=== PATIENT | male | born 1975 | race Caucasian/White ===

== ENCOUNTER 2017-03-02 16:33 | Emergency (ER) | payer OTHER ==
--- NOTE | 2017-03-02 16:58 | EDM.PDOC ---
ED HPI GENERAL MEDICAL PROBLEM - General Chief Complaint: Laceration Stated Complaint: FINGER LACERATION Time Seen by Provider: 03/02/17 16:50 Source of Information: Reports: Patient History Limitations: Reports: No Limitations - History of Present Illness INITIAL COMMENTS - FREE TEXT/NARRATIVE: Patient is a 41 year old male who presents to the ER with complaints of a cut to his left middle finger. He reports he was cutting onions and slipped and cut his finger with the knife. He reports it was bleeding so he came to ER. Denies numbness and tingling to affected extremity. Denies any other complaints. Onset: Today Onset Date: 03/02/17 Onset Time: 16:20 Location: Reports: Upper Extremity, Left Severity: Mild Left 3-Middle finger Pain Score (Numeric/FACES): 3 - Related Data Allergies Allergy/AdvReac Type Severity Reaction Status Date / Time aspirin Allergy Bleeding Verified 03/02/17 16:39 Home Meds: Home Meds . [No Known Home Meds] 03/02/17 [History] Past Medical History - Past Health History Medical/Surgical History: Denies Medical/Surgical History - Infectious Disease History Infectious Disease History: Reports: Hepatitis B - Past Surgical History HEENT Surgical History: Reports: Tonsillectomy Social & Family History - Family History Family Medical History: Noncontributory - Tobacco Use Smoking Status *Q: Current Every Day Smoker Years of Tobacco use: 10 Packs/Tins Daily: 0.2 - Caffeine Use Caffeine Use: Reports: None - Recreational Drug Use Recreational Drug Use: No ED ROS GENERAL - Review of Systems Review Of Systems: ROS reveals no pertinent complaints other than HPI. ED EXAM, SKIN/RASH Exam: See Below Exam Limited By: No Limitations General Appearance: Alert, WD/WN, No Apparent Distress Cardiovascular: Normal Peripheral Pulses Extremities: Normal Inspection, Normal Range of Motion, Non-Tender, No Pedal Edema, Normal Capillary Refill, Other (small superficial laceration to left third finger, no bleeding, CDI) Neurological: Alert, Oriented, CN II-XII Intact, Normal Cognition, Normal Gait, Normal Reflexes, No Motor/Sensory Deficits Skin: Warm, Dry Location, Skin: Upper Extremity, Left (small superficial laceration to 3rd digit ) Course - Vital Signs Last Recorded V/S: Last Vital Signs Temp 97.0 F 03/02/17 16:35 Pulse 122 H 03/02/17 16:35 Resp 20 03/02/17 16:35 BP 156/102 H 03/02/17 16:35 Pulse Ox 97 03/02/17 16:35 Departure - Departure Time of Disposition: 16:56 Disposition: Home, Self-Care 01 Condition: Good Clinical Impression: Laceration of finger Qualifiers: Encounter type: initial encounter Finger: middle finger Damage to nail status: without damage Foreign body presence: without foreign body Laterality: left Qualified Code(s): S61.213A - Laceration without foreign body of left middle finger without damage to nail, initial encounter - Discharge Information Instructions: Laceration Care, Adult, [id number] Referrals: PCP,None [Primary Care Provider] - Forms: ED Department Discharge Additional Instructions: Keep laceration clean and dry. May keep covered with bandaid. Apply a triple antibiotic ointment as needed with band aid changes. Return to clinic for any additional issues.
== END 2017-03-02 17:03 | disposition home or self-care (01) ==
LOC: CC.ED 16:33
DX: S61.213A Laceration without foreign body of left middle finger without damage to nail, initial encounter (principal); F17.210 Nicotine dependence, cigarettes, uncomplicated; W26.0XXA Contact with knife, initial encounter; Y93.89 Activity, other specified; Z88.6 Allergy status to analgesic agent
CPT/HCPCS: 99282

== ENCOUNTER 2020-01-06 19:37 | Emergency (ER) | payer SELFPAY ==
--- NOTE | 2020-01-06 20:06 | EDM.PDOC ---
ED HPI GENERAL MEDICAL PROBLEM - General Chief Complaint: Back Pain or Injury Stated Complaint: back pain Time Seen by Provider: 01/06/20 20:00 Source of Information: Reports: Patient History Limitations: Reports: No Limitations - History of Present Illness INITIAL COMMENTS - FREE TEXT/NARRATIVE: states that he has had some thoracic back problems on and off for several years. Usually from sleeping wrong, lifting wrong or positioning. No definite injury in the past. pain will radiate into the right scapula area depending on what he is doing. No numbness or tingling down arm. No weakness to the arm. with stretching the arm up in the air he does have some improvement of the pain. Has been told for several years that he has high blood pressure and has never had it treated. Does have high salt diet and drinks a lot of caffeine in a day. Does smoke and does not have desire to quit at this time. 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 [No Known Home Meds] 03/02/17 [History] Past Medical History - Past Health History Medical/Surgical History: Denies Medical/Surgical History Cardiovascular History: Reports: Hypertension Musculoskeletal History: Reports: Back Pain, Chronic, Fracture - Infectious Disease History Infectious Disease History: Reports: Hepatitis B - Past Surgical History HEENT Surgical History: Reports: Tonsillectomy Musculoskeletal Surgical History: Reports: None Social & Family History - Family History Family Medical History: Noncontributory - Caffeine Use Caffeine Use: Reports: None ED ROS GENERAL - Review of Systems Review Of Systems: See Below Constitutional: Reports: No Symptoms Respiratory: Reports: No Symptoms Cardiovascular: Reports: No Symptoms GI/Abdominal: Reports: No Symptoms Musculoskeletal: Reports: Back Pain Skin: Reports: No Symptoms Neurological: Denies: Numbness, Tingling ED EXAM,LOWER BACK PAIN/INJURY - Physical Exam Exam: See Below Exam Limited By: No Limitations General Appearance: Alert, WD/WN, Moderate Distress Respiratory/Chest: No Respiratory Distress, Lungs Clear, Normal Breath Sounds Cardiovascular: Regular Rate, Rhythm, No Edema Back Exam: Normal Inspection, Full Range of Motion, Muscle Spasm (thoracic paraspinal muscles to the right and radiates into the right scapula area. Increase in pain with palpation.) Extremities: Normal Inspection, Normal Range of Motion, Normal Capillary Refill Neurological: Alert, Oriented x 3 Skin Exam: Warm, Dry, Intact Course - Vital Signs Last Recorded V/S: Last Vital Signs Temp 98.3 F 01/06/20 19:38 Pulse 112 H 01/06/20 19:38 Resp 16 01/06/20 19:38 BP 169/100 H 01/06/20 20:00 Pulse Ox 98 01/06/20 19:38 - Re-Assessments/Exams Free Text/Narrative Re-Assessment/Exam: 01/06/20 20:22 Is agreeable to start on BP meds at this time encouraged change in lifestyle and to follow up in the clinic Departure - Departure Time of Disposition: 20:14 Disposition: Home, Self-Care 01 Condition: Good Clinical Impression: Spasm of thoracic back muscle Hypertension Qualifiers: Hypertension type: essential hypertension Qualified Code(s): I10 - Essential (primary) hypertension - Discharge Information *PRESCRIPTION DRUG MONITORING PROGRAM REVIEWED*: Not Applicable *COPY OF PRESCRIPTION DRUG MONITORING REPORT IN PATIENT RIA: Not Applicable Additional Instructions: toradol 10 mg every 8 hours for inflammation and pain flexeril 10 mg every 8 hours for muscle spasms lisinopril 20 mg daily for high blood pressure. Make clinic appt for 2 weeks for recheck BP- [phone] decrease the amount of salt and caffeine you take in attempt to quit smoking Sepsis Event Note (ED) - Evaluation Sepsis Screening Result: No Definite Risk - Focused Exam Vital Signs: Vital Signs Temp Pulse Resp BP Pulse Ox 01/06/20 20:00 169/100 H 01/06/20 19:38 98.3 F 112 H 16 180/100 H 98 - Problem List & Annotations (1) Spasm of thoracic back muscle SNOMED Code(s): 166113197351655 Code(s): M62.830 - MUSCLE SPASM OF BACK Status: Acute Priority: High Current Visit: Yes (2) Hypertension SNOMED Code(s): 40582119 Code(s): I10 - ESSENTIAL (PRIMARY) HYPERTENSION Status: Chronic Priority: High Current Visit: Yes Qualifiers: Hypertension type: essential hypertension Qualified Code(s): I10 - Essential (primary) hypertension - Problem List Review Problem List Initiated/Reviewed/Updated: Yes
[2020-01-06] MEDS: Ketorolac 60 MG/2 ML SDV IM ONE (20:14)
[2020-01-06] MEDS: Lisinopril 20 MG Tab PO SCH (20:21)
== END 2020-01-06 20:40 | disposition home or self-care (01) ==
LOC: CC.ED 19:37
DX: M62.830 Muscle spasm of back (principal); I10 Essential (primary) hypertension; Z88.6 Allergy status to analgesic agent; X50.9XXA Other and unspecified overexertion or strenuous movements or postures, initial encounter
CPT/HCPCS: 96372; 99283; A9270-GY; J1885; J2360

== ENCOUNTER 2023-08-09 10:51 | Day surgery (SDC) | payer BC ==
[2023-08-09] MEDS: Lactated Ringers 1,000 ML IV ONE (11:11)
[2023-08-09] MEDS ORDERED: Ketamine 200 MG/20 ML MDV ONE (11:33)
[2023-08-09] MEDS ORDERED: Midazolam 1 MG/ML 2 ML SDV ONE (11:33)
[2023-08-09] MEDS ORDERED: Propofol 200 MG/20 ML SDV ONE (11:33)
[2023-08-09] MEDS ORDERED: fentaNYL 50 MCG/ML SDV ONE (11:33)
[2023-08-09] MEDS ORDERED: Flumazenil 0.1 MG/ML 10 ML MDV ONE (11:33)
== END 2023-08-09 12:44 | disposition home or self-care (01) ==
LOC: CC.SDS 10:51
PROVIDERS: ATTEND Family Medicine
DX: Z12.11 Encounter for screening for malignant neoplasm of colon (principal); D12.3 Benign neoplasm of transverse colon; D12.5 Benign neoplasm of sigmoid colon; I10 Essential (primary) hypertension; F17.210 Nicotine dependence, cigarettes, uncomplicated; Z88.6 Allergy status to analgesic agent; Z79.899 Other long term (current) drug therapy
CPT/HCPCS: 00811; J2250; J2704; J3010; J3490; J7120

== ENCOUNTER 2024-06-30 19:16 | Emergency (ER) | payer BC ==
[2024-06-30] MEDS: Bacitracin Oint 1 GM U/D Packet TOP ONE (19:50)
== END 2024-06-30 19:57 | disposition home or self-care (01) ==
LOC: CC.ED 19:16
DX: S60.152A Contusion of left little finger with damage to nail, initial encounter (principal); I10 Essential (primary) hypertension; F17.210 Nicotine dependence, cigarettes, uncomplicated; Z88.6 Allergy status to analgesic agent; Z79.899 Other long term (current) drug therapy; W22.8XXA Striking against or struck by other objects, initial encounter; Y99.0 Civilian activity done for income or pay
CPT/HCPCS: 73140-F4; 99283